=== PATIENT | female | born 1990 | race Caucasian/White ===

== ENCOUNTER 2017-02-05 19:01 | Outpatient (CLI) | payer OTHER, MEDICAID ==
[~2017-02-05] VITALS: Ht 165.1 cm; Wt 63.6 kg
[2017-02-05 19:32] VITALS: BP 116/71
== END 2017-02-05 19:30 | disposition home or self-care (01) ==
LOC: EDBD → LDOP 19:01 → MERGE 19:01 → LDOP 19:30
PROVIDERS: ATTEND Obstetrics & Gynecology
DX: O26.892 Other specified pregnancy related conditions, second trimester (principal); R10.9 Unspecified abdominal pain; Z3A.25 25 weeks gestation of pregnancy
CPT/HCPCS: 59025; 99201; G0463

== ENCOUNTER 2017-02-27 18:16 | Outpatient (CLI) | payer OTHER, MEDICAID ==
[~2017-02-27] VITALS: Ht 165.1 cm; Wt 70.0 kg
[2017-02-27 18:50] VITALS: BP 102/62
[2017-02-27 19:35] LABS: AMNI OBC PASS; AMNISURE NEGATIVE (NEGATIVE)
== END 2017-02-27 20:05 | disposition home or self-care (01) ==
LOC: LDOP 18:16
PROVIDERS: ATTEND Obstetrics & Gynecology
DX: O42.913 Preterm premature rupture of membranes, unspecified as to length of time between rupture and onset of labor, third trimester (principal); O26.893 Other specified pregnancy related conditions, third trimester; R10.9 Unspecified abdominal pain; Z3A.30 30 weeks gestation of pregnancy
CPT/HCPCS: 59025; 84112; 99211; G0463